=== PATIENT | male | born 1985 | race Caucasian/White ===

== ENCOUNTER 2018-12-26 11:42 | Emergency (ER) | payer SELFPAY ==
[2018-12-26] MEDS ORDERED: AMOX500C PO (12:00)
--- NOTE | 2018-12-26 12:00 | PHYS DOC ---
Past History Past Medical History: No Pertinent History Smoking: Cigarettes Adult General Chief Complaint Chief Complaint: DENTAL PROBLEM HPI HPI Patient is a 33-year-old male who presents to the emergency department for evaluation of right lower molar pain. He states he has had some soft tissue swelling in his right lower jaw for the past 2 days. He went to her dentist this morning, who look at him and told him that he needed antibiotics, but the dentist was not able to prescribed for him. Thus the patient presents to the emergency department. He has not had any voice changes or difficulty swallowing, or fevers. Palpation of the affected area worsens his pain. There are no alleviating factors to his symptoms. The patient states that the dentist told him that he needed to be on antibiotics for 2 weeks before the dentist would be able to address the patient's tooth. Review of Systems Review of Systems Constitutional: Denies fever or chills [] Eyes: Denies change in visual acuity, redness, or eye pain [] HENT: Denies nasal congestion or sore throat [] Respiratory: Denies cough or shortness of breath [] Neurologic: Denies headache, focal weakness or sensory changes [] Allergies Allergies Allergies Coded Allergies Type Severity Reaction Last Updated Verified No Known Drug Allergies 12/26/18 No Physical Exam Physical Exam PHYSICAL EXAM: CONSTITUTIONAL: Well developed, well nourished HEAD: normocephalic, atraumatic EENT: PERRL, EOMI. Conjunctivae normal color, sclerae non-icteric; moist mucous membranes. There are several missing teeth. There is a large cavity in the single remaining right lower molar, which appears to be the anterior molar, without any obvious gingival edema or abscess, although there is some soft tissue swelling noted on the anterior surface of the right chin. The floor the mouth and submandibular soft tissues are nontender. There is no mandibular lymphadenopathy. Voice is normal. The airway is patent. NECK: Supple, non-tender; no meningismus. LUNGS: Lungs CTA, breathing even and unlabored. Normal air movement. HEART: Regular rate and rhythm, no murmur SKIN: No rash; no diaphoresis NEURO: Alert; normal speech and cognition; CN's grossly intact; strength grossly intact without focal deficit. EKG EKG [] Radiology/Procedures Radiology/Procedures [] Course & Med Decision Making Course & Med Decision Making Discussed smoking cessation, the need for dental follow-up, and return precautions. Dragon Disclaimer Dragon Disclaimer This electronic medical record was generated, in whole or in part, using a voice recognition dictation system. Departure Departure: Impression: Primary Impression: Dental abscess Disposition: HOME, SELF-CARE Condition: STABLE Patient Instructions: Dental Abscess, Dental Caries, Smoking Cessation Scripts Amoxicillin (AMOXICILLIN) 500 Mg Capsule 1 CAP PO TID for -, #42 CAP Prov: CARMELA NAVARRETE MD 12/26/18 CARMELA NAVARRETE MD Dec 26, 2018 12:00
[2018-12-26 12:21] VITALS: BP 115/72
== END 2018-12-26 12:21 | disposition home or self-care (01) ==
LOC: ER 11:42
DX: K04.7 Periapical abscess without sinus (principal); K02.9 Dental caries, unspecified; F17.210 Nicotine dependence, cigarettes, uncomplicated
CPT/HCPCS: 99283